=== PATIENT | female | born 1955 | race Caucasian/White ===

== ENCOUNTER 2019-02-10 09:11 | Observation (INO) | payer OTHER ==
[~2019-02-10] VITALS: Ht 175.3 cm; Wt 125.5 kg
[~2019-02-10 09:11] MED LIST: ASPI81CH PO; Ativan1 MG PO; CETI5 PO; LATA.005SO BOTHEYES; LEVSOD112 PO; LISI20 PO; NYST100SU SS; VITAMIN D2000 UNIT PO; Zocor20 MG PO
[2019-02-10 10:08] LABS: BASOPHILS ABSOLUTE AUTO 0.03 K/mm3 (0.00-0.23); BASOPHILS PERCENT AUTO 0 % (0-2); EOSINOPHILS ABSOLUTE AUTO 0.26 K/mm3 (0.00-0.68); EOSINOPHILS PERCENT AUTO 3 % (0-6); Hematocrit 44.3 % (33.0-51.0); Hemoglobin 14.2 g/dL (11.5-16.0); IMMATURE GRAN ABSOLUTE AUTO 0.02 K/mm3 (0.00-0.10); IMMATURE GRAN PERCENT AUTO 0 % (0-1); LYMPHOCYTES PERCENT AUTO 18 % (21-46); MONOCYTES ABSOLUTE AUTO 0.73 K/mm3 (0.16-1.47); MONOCYTES PERCENT AUTO 9 % (4-13); Mean Corpuscular HGB 29.2 pg (26.0-34.0); Mean Corpuscular HGB Conc 32.1 g/dL (31.5-36.5); Mean Corpuscular Volume 91 fL (80-100); Mean Platelet Volume 11.4 fL (9.1-12.4); NEUTROPHILS PERCENT AUTO 69 % (41-73); Platelet Count 197 K/mm3 (150-400); RDW Coefficient Variation 14.4 % (11.7-14.2); RDW Standard Deviation 47.8 fL (35.1-46.3); Red Blood Cell Count 4.87 M/mm3 (3.80-5.20); White Blood Cell Count 8.24 K/mm3 (4.00-11.30)
[2019-02-10 10:22] LABS: Troponin I <0.015 ng/mL (0.000-0.040)
[2019-02-10 10:26] LABS: Alanine Aminotransfer (ALT/SGP 18 U/L (12-78); Albumin, Blood 3.6 g/dL (3.4-5.0); Albumin/Globulin Ratio 0.9 (0.8-1.8); Alk Phos 83 U/L (50-136); Anion Gap 5 mmol/L (6-16); Aspartate Aminotrans (AST/SGOT 30 U/L (12-37); Bilirubin, Total 0.8 mg/dL (0.1-1.0); Blood Urea Nitrogen 17 mg/dL (8-24); Bun/Creatinine Ratio 21.1 (12.0-20.0); CO2, Blood 25 mmol/L (21-32); Calcium, Blood 9.2 mg/dL (8.5-10.1); Chloride, Blood 108 mmol/L (98-108); Creatinine, Blood 0.81 mg/dL (0.40-1.00); Globulin, Blood 4.1 g/dL (2.2-4.0); Glomerular Filtration Rate >60 (60-); Glucose, Blood 106 mg/dL (70-99); Potassium, Blood 5.1 mmol/L (3.5-5.5); Sodium, Blood 138 mmol/L (136-145); Total Protein, Blood 7.7 g/dL (6.4-8.2)
[2019-02-10] MEDS ORDERED: Oxybutynin Chlo10 MG PO (10:40)
[2019-02-10] MEDS ORDERED: VALACYCLOVIR1000 MG PO (10:41)
[2019-02-10] MEDS ORDERED: LEVO-T112 MCG PO (12:42)
--- NOTE | 2019-02-10 15:30 | NUR ---
pt arrived to [facility] via gurney, she was able to stand and transfer to bed indep. gait noted to be steady, a/ox3, pleasant and cooperative with care, follows commands well, denies pain, reports sob with exersion, but not at rest, she is on r/a, lungs are clear t/o, resp even and unlabored, no cough noted or reported, hrr, tele in place running sr per monitor, see strip, no edema noted, ppp+2, cap refill <3sec, vs stable, afebrile, iv site is clear and patent, s.l. btx4, abd flat soft nontender, voids without diff, skin c/w/d, maew, [place], call light in reach. oriented to room layout and call system.
--- NOTE | 2019-02-10 18:39 | NUR ---
pt resting in bed, doing ok, no complaints or change in breathing. call light in reach.
[2019-02-11 04:23] LABS: Hematocrit 42.5 % (33.0-51.0); Hemoglobin 13.5 g/dL (11.5-16.0)
[2019-02-11 04:41] LABS: Anion Gap 8 mmol/L (6-16); Blood Urea Nitrogen 15 mg/dL (8-24); Bun/Creatinine Ratio 19.6 (12.0-20.0); CO2, Blood 23 mmol/L (21-32); Calcium, Blood 8.5 mg/dL (8.5-10.1); Chloride, Blood 108 mmol/L (98-108); Creatinine, Blood 0.77 mg/dL (0.40-1.00); Glomerular Filtration Rate >60 (60-); Glucose, Blood 97 mg/dL (70-99); Sodium, Blood 139 mmol/L (136-145)
--- NOTE | 2019-02-11 07:23 | NUR ---
pt laying in bed awake a/ox3, pleasant and cooperative with care, follows commands well, denies pain or sob while at rest, lungs are clear t/o, resp even and unlabord, no cough noted, hrr, tele in place running sr per monitor, see strip, no edema noted, ppp+2, cap refill <3sec, vs stable, afebrile, iv site is clear and patent, btx4, abd flat soft nontender, voids without diff, skin c/w/d, left leg has some swelling, and is pink, maew, [place], call light in reach.
[2019-02-11] MEDS ORDERED: ACET325 PO (11:14)
[2019-02-11] MEDS ORDERED: ONDA4 PO (11:18)
[2019-02-11] MEDS ORDERED: XARELTO20 MG PO (11:25)
--- NOTE | 2019-02-11 12:15 | NUR ---
PT HAS BEEN DISCHARGED TO HOME WITH INSTRUCTIONS TO F/U WITH URGENT CARE TOMORROW, AND PCP IN ONE WEEK. SHE WILL ALSO REPEAT AN ECHO AND FOLOW UP WITH LABS. NEW MEDICATIONS WERE CALLED INTO [facility] [address]. IV REMOVED INTACT. LEFT VIA AMBULATION AT HER REQUEST, SHE TOOK ALL HER BELONGINGS.
== END 2019-02-11 11:57 | disposition home or self-care (01) ==
LOC: ER 09:11 → PCU 09:12
PROVIDERS: Emergency Medicine; ADMIT Family Medicine
DX: I26.99 Other pulmonary embolism without acute cor pulmonale (principal); I82.402 Acute embolism and thrombosis of unspecified deep veins of left lower extremity; N32.81 Overactive bladder; I10 Essential (primary) hypertension; E78.5 Hyperlipidemia, unspecified; E03.9 Hypothyroidism, unspecified; E66.9 Obesity, unspecified; Z87.891 Personal history of nicotine dependence; Z79.899 Other long term (current) drug therapy; Z79.01 Long term (current) use of anticoagulants; Z68.41 Body mass index [BMI] 40.0-44.9, adult
CPT/HCPCS: 36415; 71046; 71260; 80048; 80053; 81240; 81241; 83880; 84484; 85014; 85018; 85025; 85300; 85303; 85306; 93005; 93010; 93306; 93971; 99285-25; G0378; J1650; Q9967

== ENCOUNTER → 2022-08-13 | Outpatient (CLI) | payer MEDICARE ==
[~2022-08-13] MED LIST changes: +ACET325 PO; +HYDHCL25 PO; +LEVO-T112 MCG PO; +ONDA4 PO; +Oxybutynin Chlo10 MG PO; +VALACYCLOVIR1000 MG PO; +XARELTO20 MG PO
== END | disposition home or self-care (01) ==
LOC: LAB SHORT 10:02 → LAB 10:02 → PLD 10:02
DX: D48.5 Neoplasm of uncertain behavior of skin (principal)
CPT/HCPCS: 88304

== ENCOUNTER → 2023-11-17 | Outpatient (CLI) | payer MEDICARE | LOC: LAB SHORT 08:34 → LAB 08:34 | DX: D48.5 Neoplasm of uncertain behavior of skin (principal) ==

== ENCOUNTER → 2024-05-23 | Outpatient (CLI) | payer MEDICARE ==
[2024-05-23 14:54] LABS: Source, Urine Clean Catch
[2024-05-23 17:25] LABS: Appearance, Urine Clear (Clear); Bilirubin, Urine Neg (Neg); Blood, Urine Neg (Neg); Glucose Qualitative, Urine Neg (Neg); Ketones, Urine Neg (Neg); Leukocyte Esterase, Urine Neg (Neg); Nitrite, Urine Neg (Neg); Protein, Urine Neg (Neg); Specific Gravity, Urine 1.005 (1.003-1.022); Urobilinogen, Urine NORM (Normal)
[2024-05-23 17:43] LABS: Color, Urine Pale Yellow (P-Yellow)
== END | disposition home or self-care (01) ==
LOC: LAB 14:53 → LAB SHORT 14:53
PROVIDERS: Internal Medicine
DX: R30.0 Dysuria (principal)
CPT/HCPCS: 81003